=== PATIENT | female | born 1975 | race Caucasian/White ===

== ENCOUNTER 2021-12-06 14:02 | Outpatient (CLI) | payer OTHER, SELFPAY ==
--- NOTE | 2021-12-06 15:27 | ECG_ITS ---
Measurements Intervals [place] Rate: 73 P: 19 [place]: 143 QRS: 63 QRSD: 93 T: 53 QT: 364 QTc: 403 Interpretive Statements SINUS RHYTHM BASELINE ARTIFACT- I, II, III, AVR, AVL, AVF NORMAL ECG Electronically Signed On 12-06-2021 16:06:08 CDT by Aki Black D.O.
[2021-12-06 15:51] LABS: Hematocrit 42.3 % (37.0-47.0)
== END 2021-12-06 14:03 | disposition home or self-care (01) ==
PROVIDERS: Anesthesiology; Visit Provider Surgery Plastic and Reconstructive Surgery
DX: Z41.1 Encounter for cosmetic surgery (principal); Z01.818 Encounter for other preprocedural examination
CPT/HCPCS: 36415; 85014; 85018; 93005

== ENCOUNTER 2021-12-12 00:27 | Day surgery (SDC) | payer OTHER, SELFPAY ==
[2021-12-04 12:10] VITALS: BMI 27.8
--- NOTE | 2021-12-04 12:14 | PC.NURSE ---
Report to the Outpatient Waiting Room, entrance under the green pavilion located off [facility], at time 6:00 on date 12/12/21. OR Time: 7:30. - You and your visitor will be asked a series of questions to screen for COVID 19 for your protection. - Only one visitor is allowed at this time. - The patient visitor is requested to leave or wait in car when not with patient. - A mask is required within the hospital. Patients may have clear liquids (water, carbonated beverages, clear teas, apple juice) until 3 hours prior to surgery (4:30) with a maximum of 20 ounces. - No food from midnight until time of surgery Take the following medications with a SIP of water the morning of surgery: LEVOTHYROXINE Medications to discontinue per physician: N/A Date to take last dose: N/A Please no make-up, nail chadian, hairspray, perfume, deodorant, or body powder the day of surgery. No jewelry (including any body piercings) or valuables the day of surgery, leave them at home. Please take a shower or bath the night before, or the morning of, surgery with an antibacterial soap. Wear comfortable, loose fitting clothing. - Jewelry must be removed prior to entering the operating room. Rings and piercings that are not removed may be cut off. - The hospital will not accept responsibility for valuables. - Please leave all valuables, including medications, at home the day of surgery. If you are going home after surgery, a licensed special events driver must drive you home. - NO public transportation without another adult. - We recommend that an adult stay with you for 24 hours following discharge. - We also recommend that you do not drive, make important decision, drink alcoholic beverages, or take any drugs that were not prescribed by your health care provider for at least 24 hours after your discharge time. Follow any additional instructions given to you from your surgeon. If you or anyone in your household have experienced Covid symptoms in the past week, please notify your surgeon or the nurse liaison at the phone number below for possible testing. Telephone instructions given to PT - VICK LAMB and asked if any additional questions and then verbalized understanding. Patient advised to call surgeon office or pre surgery nurse liaison [phone] if any additional questions.
[2021-12-12] VITALS (10 sets, daily range): BP systolic 106–119; BP diastolic 60–77; PULSE 75–107; RESP 14–20; TEMP 36.1–36.6; O2SAT 95–100
--- NOTE | 2021-12-12 05:56 | W.PM.PROC2 ---
Procedure Note - Detailed Date of Procedure 12/12/21 Pre-op Diagnosis skin laxity, localized adiposity Post-op Diagnosis Same Procedure Performed Progressive tension abdominoplasty with suction lipectomy Surgeon Jonah Westfall MD Anesthesia General Findings Tissue removed - 2,733 grams Lipoaspirate - 2,600 cc Description of Procedure They are here today for abdominoplasty. Previously and again today the risks, benefits, alternatives were discussed in extensive detail. I wanted them to be very realistic about the risks involved as well as expectations. We discussed aftercare and what to monitor for. I was very upfront about the risks of wound breakdown leading to loss of skin, open wounds, and need for additional procedures with permanent abdominal deformity. We discussed DVT/PE risks and management. Made sure answered all of their questions to their satisfaction today and consent was obtained. They were marked in the preoperative holding area with their verification. The patient was taken to the operating room placed supine on the operating table. Anesthesia was provided by anesthesiology. A Vidal catheter was started. They were prepped and draped in a standard sterile fashion. A surgical time-out was taken. I placed the patient in a flexed position to verify the upper and lower markings would reach. I then placed supine. A thorough abdominal examination was completed. Stab incisions were made and tumescent solution infiltrated. Suction lipectomy was completed using a 5 mm basket cannula based on S.A.F.E. technique. This was in multiple planes and passes based on preoperative planning, intraoperative observation, and rolling pinch test. I did place the patient in a lateral decubitus position as well as supine while doing this in order to optimize visualization. Care was taken repositioning to protect the patient from injury. A 10 blade was used to make the upper incision. I continued dissection down to the level of fascia. Elevated just what was necessary for repair of the diastasis. I then again flexed the bed to verify the upper skin flap would reach the lower markings without tension. Once verified I placed her supine once again and a 10 blade used to make the lower incision. I elevated up to level the umbilicus and left the umbilicus intact on a well-vascularized stalk. The intervening tissue was removed. A 2 mm blunt cannula with 0.5% bupivicaine was injected deep to the fascia bilaterally. I plicated the diastasis recti using 0 PDO stratafix barbed suture. This was in 2 separate layers using 2 separate sutures as well. I repaired around the umbilicus leaving plenty of room for well-vascularized stalk of the umbilicus with 2-0 PDS. I also repaired lateral to the rectus using two layers of 0 PDO stratafix. The patient was flexed and starting from superior to inferior began plication using 2-0 Vicryl to obliterate all space in a standard progressive tension fashion. At the umbilicus I marked out the location of the skin and inset this with 3-0 Monocryl and 4-0 Vicryl. I continued the remainder of the plication using 2-0 Vicryl until I reached my lower planned scar line. I trimmed any excess skin of the upper flap making sure this was a tension-free closure. I then approximated using a 3 point suture with 2-0 Vicryl followed by 3-0 stratafix ,running subcuticular 4-0 Monocryl, and tissue glue. Fluffs and an abdominal binder were placed. The patient was transferred to the bed in a flexed position. Awoken and taken to the PACU without difficulty. All instrument and sponge counts were correct at the end of the case. Estimated Blood Loss 100 Drains No Packing No Pathology None sent Complications No immediate complications Condition Stable Disposition PACU
[2021-12-12] MEDS: LACTATED RINGERS 1,000 ML 30 ML IV CONT ×3 (06:25→11:59)
[2021-12-12 06:29] LABS: Urine Cotinine NEGATIVE
--- NOTE | 2021-12-12 06:35 | P.PNAN_ITS ---
Anes - Initial Pre Proc Eval Procedure: Operation Date: 12/12/21 07:30 Proposed Procedures p Abdominoplasty with Abdominal Liposuction - Jonah Westfall MD Date/Time: 12/12/21 06:35 Surgeon: Jonah Westfall MD Pre Op Diagnosis: skin laxity, localized adiposity Patient Data Age: 46 Gender: F Height: 1.5 m Weight: 60.7 kg Allergies Allergy/AdvReac Type Severity Reaction Status Date / Time Sulfa (Sulfonamide Allergy Severe Hives Verified 12/12/21 06:04 Antibiotics) trazodone AdvReac Severe Swelling Verified 12/12/21 06:04 levofloxacin [From Levaquin] AdvReac Mild Hives Verified 12/12/21 06:04 Home Medications Medication Instructions Recorded Confirmed Type gabapentin 100 mg capsule 100 mg PO HS 07/31/21 12/12/21 History levothyroxine 125 mcg tablet 125 mcg PO DAILY 07/31/21 12/12/21 History (Synthroid) docusate sodium 100 mg capsule 100 mg PO DAILY #14 caps 11/27/21 12/04/21 Rx (Colace) ondansetron HCl 4 mg tablet 4 mg PO Q8H #21 tabs 11/27/21 12/04/21 Rx carisoprodol 350 mg tablet (Soma) 350 mg PO TID PRN muscle pain #21 11/28/21 12/04/21 Rx tabs oxycodone-acetaminophen 5 mg-325 1 tablet PO Q6H PRN pain #30 tabs 11/28/21 12/04/21 Rx mg tablet (Percocet) spironolactone 50 mg tablet 50 mg PO BID ACNE 12/04/21 12/12/21 History Laboratory Tests 12/12/21 06:10 Cotinine Negative Patient hx anesthesia problems: none Family hx anesthesia problems: none Results Review: All pre-operative results and documents have been reviewed as part of the pre- operative evaluation. [facility] Past Medical History Medical History (Updated 12/12/21 @ 06:35 by Anthony Cabral DO) Hypothyroid Surgical History Surgical History History of endometrial ablation Hx of section Hx of cholecystectomy Hx of tonsillectomy Hx of tubal ligation Family History Family History Father Heart problem Social History Social History Smoking status: Never smoker Alcohol intake: current Alcohol use details: 1-2/MONTH Substance use: never Substance use type: does not use Living arrangements: with family Spiritual care concerns: No Anes - Eval Final PreProcedure Day of Procedure 12/12/21 06:35 Patient weight: overweight Heart: regular rate and rhythm Lungs: clear to auscultation Airway: Mallampati scale class II Neurological: alert and oriented Last oral intake: >/= 8 hours ASA classification: II Emergent: no Anesthetic plan: proceed Anesthesia type and monitoring: general ETT and standard monitoring Results Review: All pre-operative results and documents have been reviewed as part of the pre- operative evaluation. Informed Consent: The patient's anesthetic plan and its attendant risks and benefits were discussed with the patient/family/POA. Questions were solicited and answers provided to the satisfaction of the patient/family/POA.
[2021-12-12] MEDS: SCOPOLAMINE 1.5 MG PATCH TRANSDERM (06:44)
--- NOTE | 2021-12-12 06:59 | WPDHPUPDATE1 ---
History and Physical Update Update Date/Time: 12/12/21 06:59 History and Physical has been reviewed, including an updated exam of the patient. There are NO changes in the patient's condition. Risks, benefits, and alternatives have been discussed and questions answered. Patient agrees to proceed with procedure.
[2021-12-12] MEDS: ceFAZolin 2 GM/D5W 50 ML 2 GM/50 ML BAG IVPB (07:27)
[2021-12-12] MEDS: TRANEXAMIC ACID 1,000MG/ISO100 1,000 MG/100 ML BAG 200 MG IVPB (07:27)
[2021-12-12] MEDS: LACTATED RINGERS IRRIG 1,000 ML, LIDOCAINE HCL 1% LOCAL INJ 50 ML, EPINEPHrine HCL INJ ... INFILTRATE (08:00)
[2021-12-12] MEDS: BUPIVACAINE/EPINEPHRINE 0.25% 50 ML VIAL 60 ML INFILTRATE (09:45)
[2021-12-12] MEDS: fentaNYL CITRATE INJ (*CRX) 100 MCG/2 ML VIAL 25 MCG IV PUSH ×8 (11:41→12:17)
[2021-12-12] MEDS: ONDANSETRON INJ 4 MG/2 ML VIAL IV PUSH (11:49)
[2021-12-12] MEDS: HYDROmorphone HCL INJ (*CRX) 1 MG/ML SYR 0.25 MG IV PUSH (12:32)
[2021-12-12] MEDS: diphenhydrAMINE HCl INJ 50 MG/ML VIAL 12.5 MG IV PUSH (12:45)
--- NOTE | 2021-12-12 12:55 | SUR.PHASEI ---
PT REMAINS IN FLEXED POSITION
[2021-12-12] MEDS: oxyCODONE HCL (*CRX) 5 MG TAB IR PO (13:23)
== END 2021-12-12 14:14 | disposition home or self-care (01) ==
PROVIDERS: Visit Provider Surgery Plastic and Reconstructive Surgery
PROC: (CPT 15877; principal; 2021-12-12 07:30)
DX: Z41.1 Encounter for cosmetic surgery (principal); L57.4 Cutis laxa senilis; E65 Localized adiposity; E03.9 Hypothyroidism, unspecified
CPT/HCPCS: 15877; 15830; 15847; 80307; A9270; J0171; J0330; J0690; J1100; J1170; J1200; J2250; J2405; J2704; J3010; J7120